=== PATIENT | female | born 1970 | race Caucasian/White ===

== ENCOUNTER 2022-05-15 11:44 | Outpatient (CLI) | payer BC, SELFPAY | END 2022-05-15 11:45 | disposition home or self-care (01) | PROVIDERS: PCP Emergency Medicine; Visit Provider Emergency Medicine | DX: R23.2 Flushing (principal); R53.83 Other fatigue; E78.1 Pure hyperglyceridemia | CPT/HCPCS: 83001; 84443 ==

== ENCOUNTER 2023-08-19 17:36 | Outpatient (CLI) | payer BC, SELFPAY | END 2023-08-19 17:37 | disposition home or self-care (01) | LOC: LKVREF 17:36 | PROVIDERS: PCP Emergency Medicine; Visit Provider Emergency Medicine | DX: K21.9 Gastro-esophageal reflux disease without esophagitis (principal) | CPT/HCPCS: 82607 ==